=== PATIENT | male | born 1945 | race Caucasian/White ===

== ENCOUNTER → 2018-10-18 | Outpatient (CLI) | payer OTHER | LOC: BHFA 13:30 | PROVIDERS: ATTEND Internal Medicine Cardiovascular Disease | DX: R94.31 Abnormal electrocardiogram [ECG] [EKG] (principal); I48.91 Unspecified atrial fibrillation | CPT/HCPCS: 78452; 93017; A9500; J2785 ==

== ENCOUNTER → 2018-11-06 | Outpatient (CLI) | payer OTHER | LOC: BHFA 09:15 | PROVIDERS: ATTEND Internal Medicine Interventional Cardiology | DX: I48.91 Unspecified atrial fibrillation (principal) ==

== ENCOUNTER → 2018-11-16 | Outpatient (CLI) | payer OTHER | LOC: BHFA 09:00 | PROVIDERS: ATTEND Internal Medicine Interventional Cardiology | DX: I48.91 Unspecified atrial fibrillation (principal) ==

== ENCOUNTER 2018-12-07 06:44 | Day surgery (SDC) | payer OTHER ==
[2018-12-07] MEDS ORDERED: fentaNYL 100 MCG/2 ML INJ IVP ONE (06:47)
[2018-12-07] MEDS ORDERED: NS 500 ML IV ONE (06:47)
[2018-12-07] MEDS ORDERED: ATROPINE SULFATE 1 MG/10 ML SYR IVP ONE (06:47)
[2018-12-07] MEDS ORDERED: MIDAZOLAM 2 MG/2 ML VIAL IVP ONE (06:47)
[2018-12-07] MEDS ORDERED: BENZOCAINE UNIT DOSE SPRAY HURRICAINE MM ONE (06:47)
[2018-12-07 07:37] LABS: INR 1.25 (0.83-1.16); PROTIME(PATIENT) 15.9 SEC (12.0-15.0)
--- NOTE | 2018-12-07 08:37 | PDANEPAE ---
ANE Past Medical History - Cardiovascular History Hx Arrhythmias: Yes - Pulmonary History Hx COPD: No Hx Asthma/Reactive Airway Disease: No Hx Recent Upper Respiratory Infection: No Hx Oxygen in Use at Home: No Hx Sleep Apnea: No ANE Review of Systems Review of Systems: ANE Patient History - Allergies Allergies/Adverse Reactions: No Known Allergies Allergy (Unverified 01/22/11 15:14) - Home Medications Home Medications: Aspirin [Aspirin 81mg (OTC)] 81 mg PO DAILY 02/05/14 [Last Taken Unknown] Herbals/Supplements -Info Only 1 each PO AD 02/05/14 [Last Taken Unknown] Multivitamins [Tab-A-Zeynep] 1 each PO DAILY 02/05/14 [Last Taken Unknown] [place]-3 Fatty Acids/Fish Oil [Fish Oil 1,000 mg Capsule] 1 each PO DAILY [Last Taken Unknown] Zolpidem Tartrate 5 - 10 mg PO HS PRN 02/05/14 [Last Taken 12/06/18 23:30] Eliquis 5 mg BID 12/07/18 [Last Taken 12/07/18 07:21] Lisinopril 5 mg DAILY 12/07/18 [Last Taken 12/07/18 06:00] - Smoking Hx Smoking Status: Former smoker ANE Labs/Vital Signs - Labs Result Diagrams: 12/07/18 07:20 - Vital Signs Height: 172.72 cm Weight: 65.771 kg ANE Physical Exam - Airway Neck exam: FROM Mallampati Score: Class 2 Mouth exam: normal dental/mouth exam - Pulmonary Pulmonary: no respiratory distress - Cardiovascular Cardiovascular: irregularly irregular - ASA Status ASA Status: II ANE Anesthesia Plan Anesthesia Plan: GA with mask
[2018-12-07] MEDS ORDERED: LIDOCAINE 1% 5 ML SDV ONE (08:38)
[2018-12-07] MEDS ORDERED: PROPOFOL 200 MG/20 ML VIAL ONE ×2 (08:38→09:01)
--- NOTE | 2018-12-07 08:48 | PDHPUP ---
History & Physical Update H&P update statement: This history and physical update is based on an assessment of the patient which was completed after admission or registration (within 24 hours), but prior to the surgery/procedure. H&P update: H&P reviewed & patient examined, no change in patient's condition since H&P completed
--- NOTE | 2018-12-07 09:20 | POSTANESTH ---
Post Anesthetic Evaluation Cardiovascular Status: Normal, Stable Respiratory Status: Normal, Stable Level of Consciousness/Mental Status: Mildly Sleepy, Arousable Pain Control: Adequate, Prn Tx Ordered Nausea/Vomiting Control: Adequate, Prn Tx Ordered Complications Possibly Related to Anesthesia: None Noted
--- NOTE | 2018-12-07 09:25 | PDTEE1 ---
TIFFANIE Cardioversion Procedure Procedure: electrical cardioversion, transesophageal echo Indications: atrial fibrillation Consent: signed and in chart Anticoagulation: eliquis Procedural Details: Pads were placed in anterior-posterior position. TIFFANIE probe was advanced and standard images obtained. There is no evidence of left atrial or left atrial appendage thrombus. Synchronized cardioversion attempt #1: 200J Results: normal sinus rhythm Conclusions: successful TIFFANIE cardioversion
--- NOTE | 2018-12-07 10:00 | CPEKG ---
Test Reason : OPEN Blood Pressure : / mmHG Vent. Rate : 093 BPM Atrial Rate : 083 BPM P-R Int : 287 ms QRS Dur : 086 ms QT Int : 420 ms P-R-T Axes : 162 062 208 degrees QTc Int : 523 ms Atrial fibrillation Repol abnrm suggests ischemia, diffuse leads Prolonged QT interval Confirmed by Miguel Boston ([id number]) on 12/07/2018 9:59:32 AM Referred By: LION BERRIOS Confirmed By:Miguel Boston
--- NOTE | 2018-12-07 10:01 | CPEKG ---
Test Reason : OPEN Blood Pressure : / mmHG Vent. Rate : 054 BPM Atrial Rate : 108 BPM P-R Int : 147 ms QRS Dur : 082 ms QT Int : 437 ms P-R-T Axes : 074 045 116 degrees QTc Int : 415 ms Sinus rhythm Supraventricular bigeminy Repol abnrm suggests ischemia, anterolateral Confirmed by Miguel Boston ([id number]) on 12/07/2018 10:00:57 AM Referred By: LION BERRIOS Confirmed By:Miguel Boston
--- NOTE | 2018-12-13 10:00 | ECHO ---
[email or web address] [address] [address] Main: [phone] Fax: Transesophageal Echocardiography Name: GARCIA VERA MR#: [id number] Study Date: 12/07/2018 Study Time: 08:42 AM Date of : 1945 Age: 73 year(s) Height: ( ) Weight: ( ) BSA: Gender: Male Examination: TIFFANIE Indication: pre-cardioversion; MR Image Quality: Adequate Contrast: Requested by: James Booth Heart Rate: Rhythm: BP: / Procedure Staff Chief Of Hospital Medicine: Isabel Mei [facility] Reading Physician: James Booth MD Requesting Provider: TIFFANIE Exam Details Conclusions: no pericardial effusion. Left atrial enlargement. Moderate to severe mitral regurgitation No thrombus within left atrial appendage. No contraindications to cardioversion identified by this study. Measurements: Chambers Valvular Assessment AV/MV Valvular Assessment TV/PV Normal Normal Normal Name Value Range Name Value Range Name Value Range Additional Measurements: Findings: Left Ventricle: Normal size left ventricle. Normal global systolic LV function. Left Atrium: Left atrial enlargement. Left Atrial Appendage: No thrombus in left appendage. Right Atrium: Right atrial enlargement. Mitral Valve: There is mild thickening of the mitral valve leaflets. There is mild bileaflet mitral valve prolapse. Patient: GARCIA VERA Study Date: 12/07/2018 Page 1 of 2 08:42 AM Moderate to severe mitral regurgitation. Doming of the mitral valve leaflets consistent with moderate mitral valve stenosis. Aortic Valve: There is mild thickening of the aortic cusps. The aortic valve is tri-leaflet. Mild aortic valve regurgitation is present. Tricuspid Valve: The tricuspid valve appears normal. Moderate tricuspid regurgitation is present. Pulmonic Valve: The pulmonic valve is normal in appearance and function. l1n (No Signature Object) Patient: GARCIA VERA Study Date: 12/07/2018 Page 2 of 2 08:42 AM [id number]
== END 2018-12-07 10:30 | disposition home or self-care (01) ==
LOC: FCATH 06:44
PROVIDERS: ATTEND Internal Medicine Interventional Cardiology
DX: I48.91 Unspecified atrial fibrillation (principal); I34.0 Nonrheumatic mitral (valve) insufficiency; I51.7 Cardiomegaly; I36.1 Nonrheumatic tricuspid (valve) insufficiency; I10 Essential (primary) hypertension; Z79.01 Long term (current) use of anticoagulants; Z85.820 Personal history of malignant melanoma of skin; Z85.46 Personal history of malignant neoplasm of prostate; Z82.49 Family history of ischemic heart disease and other diseases of the circulatory system
CPT/HCPCS: J0461; J2704

== ENCOUNTER 2019-03-30 08:32 | Day surgery (SDC) | payer OTHER ==
[2019-03-30] MEDS ORDERED: FAMOTIDINE 20 MG TAB PO ONE (08:42)
[2019-03-30] MEDS ORDERED: DIAZEPAM 5 MG TAB PO ONE (08:42)
[2019-03-30] MEDS ORDERED: diphenhydrAMINE 25 MG CAP PO ONE (08:42)
[2019-03-30] MEDS ORDERED: ASPIRIN EC 325 MG TAB PO ONE (08:42)
[2019-03-30] MEDS ORDERED: NS 1,000 ML IV ONE (08:42)
[2019-03-30 09:35] LABS: PLATELET COUNT 213 10^3/uL (150-400)
[2019-03-30 09:45] LABS: INR 1.07 (0.83-1.16); PROTIME(PATIENT) 13.5 SEC (12.0-15.0)
--- NOTE | 2019-03-30 09:53 | PDPROPOC ---
Sedation Plan of Care Sedation Plan of Care: vital signs stable, mental status noted, patient educated of risks, benefits, alternatives, patient can tolerate sedation ASA Classification: ASA 1 Planned drugs: fentanyl, midazolam Mallampati Score: Class 1 Mallampati Reference Image: Patient passed 3-3-2 rule?: Yes
[2019-03-30] MEDS ORDERED: MIDAZOLAM 2 MG/2 ML VIAL ONE (10:03)
[2019-03-30] MEDS ORDERED: fentaNYL 100 MCG/2 ML INJ ONE (10:03)
[2019-03-30] MEDS ORDERED: VERAPAMIL 5 MG/2 ML VIAL ONE (10:04)
[2019-03-30] MEDS ORDERED: HEPARIN 10,000 UNIT/10 ML MDV (1,000 UNIT/ML) ONE (10:04)
[2019-03-30] MEDS ORDERED: IOPAMIDOL (ISOVUE 370) 100 ML BTL IV ONE (10:05)
[2019-03-30] MEDS ORDERED: LIDOCAINE 1% 5 ML SDV ONE (10:05)
--- NOTE | 2019-03-30 10:48 | PDGENHP ---
History & Physical Chief Complaint: Preop mitral valve History of Present Illness: 73-year-old male here for elective cardiac catheterization prior to mitral valve repair with Maze procedure Pertinent Past, Social, Family History: Please see attached H and P for complete social family and past medical history. Relevant Physical Exam: Heart rate 110. Blood pressure 130/70. Well-nourished well-developed male no distress. No JVP at 90 degrees. Chest is clear. Cardiac exam irregular irregular rhythm with 3/6 systolic murmur. Abdomen is soft. Femoral pulses are +2 and equal. Radial pulses +2 and equal. Alert and oriented x3. No facial asymmetry. Cardiorespiratory Assessment: Assessment: Preop mitral valve repair/Maze procedure. Cardiac catheterization today. Risks and benefits discussed will proceed.
--- NOTE | 2019-03-30 11:08 | PDDXCAT ---
Diagnostic Cath Note - . Date: 03/30/19 Service Operator: Leobardo Indication: other (Preop mitral valve surgery) - Procedure Access: right wrist Procedure: left heart catheterization, coronary angiography, left ventriculogram - Materials Left Heart Cath size: 5F Left Heart Cath materials: pigtail, other ([place] 4) - Findings-Left Heart Catheterization LM: Normal LAD: Normal LCX: Dominant: Normal RCA: Non dominant: Normal EDP: 12 mm of mercury LVEF: 60 Wall motion: Normal Complications: None Estimated blood loss: <50ml Closure method: TR Band Assessment: Angiographically normal coronary arteries. Normal LV systolic function
--- NOTE | 2019-04-06 10:45 | CPEKG ---
Test Reason : OPEN Blood Pressure : / mmHG Vent. Rate : 111 BPM Atrial Rate : 110 BPM P-R Int : 130 ms QRS Dur : 085 ms QT Int : 267 ms P-R-T Axes : -66 058 269 degrees QTc Int : 363 ms Atrial flutter Confirmed by Juan Miguel Herbert ([id number]) on 04/06/2019 10:44:50 AM Referred By: LION BERRIOS Confirmed By:Juan Miguel Herbert
== END 2019-03-30 14:00 | disposition home or self-care (01) ==
LOC: FCATH 08:32
PROVIDERS: ATTEND Internal Medicine Interventional Cardiology
DX: Z01.810 Encounter for preprocedural cardiovascular examination (principal); I34.0 Nonrheumatic mitral (valve) insufficiency; Z85.820 Personal history of malignant melanoma of skin
CPT/HCPCS: 71046; 93458; 93880; C1769; J1644; J2250; J3010; Q9967

== ENCOUNTER 2019-04-04 07:15 | Inpatient (IN) | payer OTHER ==
--- NOTE | 2019-04-04 07:12 | PDGENHP ---
History and Physical - Chief Complaint preop Maze, MVrpr, TVrpr - History of Present Illness 73 yo male with persistent AF assoc with moderate to severe MR, moderate TR, severe biatrial enlargement and class II-III functional symptoms admitted for elective Bedoya-Maze IV procedure with valvular repair/replacement. Preop imaging negative for LVSD or prohibitive neurologic risk. Cath interpreted by Dr Feng as showing possible high grade ostial RCA stenosis and to be reviewed in cath conference this am. AF diagnosed about 1 yr ago on annual physical and has been refractory to antiarrhythmic therapy as well as DC CVSN. Although he is unaware of his rhythm/ palpitations, he endorses a significant decline in his stamina over the past year, feeling winded with modest exertion and no longer able to snowboard, hike , or play basketball at his his usual pace. No wt gain, orthopnea, abd tenderness, leg edema or presyncope. Eliquis stopped 03/24. History Information - Allergies/Home Medication List Allergies/Adverse Reactions: No Known Allergies Allergy (Verified 04/04/19 07:45) Home Medications: Herbals/Supplements -Info Only 1 each PO AD 02/05/14 [Last Taken 1 Month Ago ~] Multivitamins [Tab-A-Zeynep] 1 each PO DAILY 02/05/14 [Last Taken 1 Month Ago ~] [place]-3 Fatty Acids/Fish Oil [Fish Oil 1,000 mg Capsule] 1 each PO DAILY [Last Taken 1 Month Ago ~03/05/19] Zolpidem Tartrate 5 - 10 mg PO HS PRN 02/05/14 [Last Taken 04/03/19 22:00] Apixaban [Eliquis] 5 mg PO BID 12/07/18 [Last Taken 03/25/19 07:00] Albuterol [Proventil Inhaler HFA (*)] 2 puffs IH DAILY PRN 03/26/19 [Last Taken 07/08/18] Ascorbic Acid [Vitamin C 250 mg (*)] 250 mg PO DAILY 03/26/19 [Last Taken 1 Month Ago ~03/05/19] Lisinopril [Zestril 10 mg (*)] 5 mg PO BID 03/26/19 [Last Taken 04/03/19 22:00] I have personally reviewed and updated: medical history, social history, surgical history - Past Medical History cancer (prostate), hypertension Additional medical history: Hepatitis C (contracted from [facility]DA in his youth) treated with Harvoni in 2018 and deemed "cured". insomnia. anxiety disorder. carotid atherosclerosis - Surgical History Reports: cholecystectomy Additional surgical history: prostatectomy - Social History Smoking Status: Former smoker Review of Systems Review of Systems: Constitutional: Reports: no symptoms EENMT: Reports: other (no gum/dental concerns) Gastrointestinal: Reports: other (no difficulty swallowing pills) Genitourinary: Reports: no symptoms Physical Exam Physical Exam: Constitutional: no apparent distress, appears nourished Eyes: anicteric sclera Ears, Nose, Mouth, Throat: moist mucous membranes, hearing normal, other (no visible dental disrepair) Cardiovascular: systolic murmur, irregularly irregular, pulses symmetric bilaterally, other (Excellent caliber GSV bilat ankles, no varicosities) Peripheral Pulses: 3+: dorsalis-pedis (R), dorsalis-pedis (L) Respiratory: no respiratory distress, clear to auscultation Gastrointestinal: normoactive bowel sounds, soft, non-tender abdomen Skin: warm, normal color, no rashes or abrasions Musculoskeletal: other (symmetric tone) Neurologic: AAOx3 Psychiatric: interacting appropriately, not anxious Lab Data & Imaging Review Patient ABO/Rh AB POSITIVE 03/30/19 09:00 Antibody Screen NEGATIVE 03/30/19 09:00 H/H 15.9/46.5, plt 213 Na 140, K 4.3, BUN 18, Cr 0.9, glc 92 HgbA1c 5.9% Imaging Review: CUS, TIFFANIE, LHC (reported by Dr Booth as angiographically nl coros, LVEDP 12, LVEF 60%) Visualized and Interpreted Chest x-ray results: Yes Chest X-Ray results: no infiltrate, other (borderline cardiomegaly) Assessment & Plan Assessment: Longstanding persistent atrial fibrillation Valvular cardiomyopathy with severe AGUSTINA Moderate to severe mitral regurgitation Moderate tricuspid regurgitation Possible high grade ostial RCA stenosis Plan: Bedoya-Maze 4, MVA/R, TVA, +/- CABG1 Consents per Dr Feng
[~2019-04-04 07:15] MED LIST: CARDIOPLEGIC SOLUTION 1,052.8 ML PF ONE; DOBUTamine/DEXTROSE 250 ML IV ONE; INSULIN REGULAR HUMAN 100 UNIT in NS 100 ML IV ONE; MANNITOL 25% 12.5 GM/50 ML VIAL IVP ONE; MILRINONE/DEXTROSE 100 ML IV ONE; NOREPINEPHRINE BITARTRATE 16 MG in NS 250 ML IV ONE; PHENYLEPHRINE HCL 50 MG in NS 250 ML IV ONE
[2019-04-04] MEDS ORDERED: AMINOCAPROIC ACID 5 GM/20 ML VIAL IV ONE (07:21)
[2019-04-04] MEDS ORDERED: CITRATE DEXTROSE SOLN 500 ML BAG MISC ONE (07:21)
[2019-04-04] MEDS ORDERED: ceFAZolin 2 GM/DEXTROSE 100 ML IV ONE (07:21)
[2019-04-04] MEDS ORDERED: niCARdipine/NACL 200 ML IV ONE (07:21)
[2019-04-04] MEDS ORDERED: LIDOCAINE 1% 2 ML INJ ID PRN (07:21)
[2019-04-04] MEDS ORDERED: LR 1,000 ML IV ONE (07:22)
[2019-04-04] MEDS ORDERED: PROTAMINE SULFATE 50 MG/5 ML VIAL IVP ONE (07:37)
[2019-04-04] MEDS ORDERED: ALBUMIN 5% 250 ML BOTTLE IV ONE ×2 (07:37→11:39)
[2019-04-04] MEDS ORDERED: MILRINONE/DEXTROSE/100 ML BAG IV ONE (07:37)
[2019-04-04] MEDS ORDERED: CALCIUM CHLORIDE 1 GM/10 ML INJ ONE (07:37)
[2019-04-04] MEDS ORDERED: NA BICARBONATE 50 MEQ/50 ML VIAL ONE (07:38)
[2019-04-04] MEDS ORDERED: AMINOCAPROIC ACID 5 GM/20 ML VIAL ONE (07:38)
[2019-04-04] MEDS ORDERED: LIDOCAINE 2% 100 MG/5 ML SYR ONE (07:38)
[2019-04-04] MEDS ORDERED: HEPARIN 10,000 UNIT/10 ML MDV (1,000 UNIT/ML) ONE (07:39)
[2019-04-04] MEDS ORDERED: MAGNESIUM SULFATE 1 GM/2 ML VIAL ONE (07:40)
[2019-04-04] MEDS ORDERED: methylPREDNISolone SOD SUCC 1 GM/8 ML VIAL ONE (07:40)
[2019-04-04] MEDS ORDERED: DOPamine/DEXTROSE 400 MG/250 ML BAG IV ONE (07:40)
[2019-04-04] MEDS ORDERED: ADENOSINE 6 MG/2 ML VIAL ONE (07:40)
[2019-04-04] MEDS ORDERED: CITRATE DEXTROSE SOLN 500 ML BAG ONE (07:40)
[2019-04-04] MEDS ORDERED: niCARdipine/NACL/200 ML BAG IV ONE (07:40)
[2019-04-04] MEDS ORDERED: AMIODARONE HCL 150 MG/3 ML VIAL ONE (07:40)
[2019-04-04] MEDS ORDERED: NITROGLYCERIN/D5W 50 MG/250 ML BOTTLE IV ONE (07:41)
[2019-04-04] MEDS ORDERED: PAPAVERINE HCL 60 MG/2 ML SDV ONE (07:41)
[2019-04-04] MEDS ORDERED: VERAPAMIL 5 MG/2 ML VIAL ONE (07:41)
[2019-04-04] MEDS: MUPIROCIN 2% 22 GM OINT NS SCH ×3 (08:10→22:22)
[2019-04-04] MEDS ORDERED: MIDAZOLAM 2 MG/2 ML VIAL IVP ONE (08:15)
--- NOTE | 2019-04-04 08:15 | PDANEPAE ---
ANE History of Present Illness 73 yo for mvr/tvr ANE Past Medical History - Cardiovascular History Hx Hypertension: Yes Hx Arrhythmias: Yes Hx Chest Pain: No Hx Coronary Artery / Peripheral Vascular Disease: No Hx CHF / Valvular Disease: No Hx Palpitations: No Cardiovascular History Comment: A-FIB - Pulmonary History Hx COPD: No Hx Asthma/Reactive Airway Disease: No Hx Recent Upper Respiratory Infection: No Hx Oxygen in Use at Home: No Hx Sleep Apnea: No Sleep Apnea Screening Result - Last Documented: Positive - Neurologic History Hx Cerebrovascular Accident: No Hx Seizures: No Hx Dementia: No - Endocrine History Hx Diabetes: No - Renal History Hx Renal Disorders: No - Liver History Hx Hepatic Disorders: Yes Hepatic History Comment: HEP C 1985 TREATED 04/2015 - Neurological & Psychiatric Hx Hx Neurological and Psychiatric Disorders: Yes Neurological / Psychiatric History Comment: INSOMNIA. ANXIETY. MORE RECENTLY IRRITABLE - Cancer History Hx Cancer: Yes Cancer History Comment: MELANOMA. PROSTATE - Congenital Disorder History Hx Congenital Disorders: No - GI History Hx Gastrointestinal Disorders: No - Other Health History Other Health History: UPPER PARTIAL - Chronic Pain History Chronic Pain: No - Surgical History Prior Surgeries: TIFFANIE 11/2018. AVELINA 2014. PROSTATECTOMY. REMVL MELANOMA ANE Review of Systems Review of Systems: - Exercise capacity METS (RN): 6 METS ANE Patient History - Allergies Allergies/Adverse Reactions: No Known Allergies Allergy (Verified 04/04/19 07:45) - Home Medications Home Medications: Herbals/Supplements -Info Only 1 each PO AD 02/05/14 [Last Taken 1 Month Ago ~] Multivitamins [Tab-A-Zeynep] 1 each PO DAILY 02/05/14 [Last Taken 1 Month Ago ~] [place]-3 Fatty Acids/Fish Oil [Fish Oil 1,000 mg Capsule] 1 each PO DAILY [Last Taken 1 Month Ago ~03/05/19] Zolpidem Tartrate 5 - 10 mg PO HS PRN 02/05/14 [Last Taken 04/03/19 22:00] Apixaban [Eliquis] 5 mg PO BID 12/07/18 [Last Taken 03/25/19 07:00] Albuterol [Proventil Inhaler HFA (*)] 2 puffs IH DAILY PRN 03/26/19 [Last Taken 07/08/18] Ascorbic Acid [Vitamin C 250 mg (*)] 250 mg PO DAILY 03/26/19 [Last Taken 1 Month Ago ~03/05/19] Lisinopril [Zestril 10 mg (*)] 5 mg PO BID 03/26/19 [Last Taken 04/03/19 22:00] - NPO status NPO Since - Liquids (Date): 04/03/19 NPO Since - Liquids (Time): 22:00 NPO Since - Solids (Date): 04/03/19 NPO Since - Solids (Time): 18:00 - Smoking Hx Smoking Status: Former smoker ANE Labs/Vital Signs - Vital Signs Blood Pressure: 152/115 Heart Rate: 115 Respiratory Rate: 16 O2 Sat (%): 97 Height: 5 ft 8 in Weight: 64.41 kg ANE Physical Exam - Airway Neck exam: FROM Mallampati Score: Class 2 Mouth exam: normal dental/mouth exam - Pulmonary Pulmonary: no respiratory distress - Cardiovascular Cardiovascular: regular rate and rhythym - ASA Status ASA Status: III ANE Anesthesia Plan Anesthesia Plan: general endotracheal anesthesia Lines/Monitors: arterial line, central line
[2019-04-04] MEDS ORDERED: DEXAMETHASONE 4 MG/ML VIAL ONE (08:27)
[2019-04-04] MEDS ORDERED: REMIFENTANIL HCL 1 MG VIAL ONE (08:27)
[2019-04-04] MEDS ORDERED: fentaNYL 100 MCG/2 ML INJ ONE (08:27)
[2019-04-04] MEDS ORDERED: ROCURONIUM 100 MG/10 ML VIAL ONE (08:27)
[2019-04-04] MEDS ORDERED: PROPOFOL/EMULSION 500 MG/50 ML BOTTLE IV ONE (08:27)
[2019-04-04] MEDS ORDERED: DEXMEDETOMIDINE HCL 400 MCG in NS 100 ML IV SCH (08:30)
[2019-04-04] MEDS: ceFAZolin 1 GM VIAL ONE ×2 (12:30→12:52)
[2019-04-04] MEDS ORDERED: SUGAMMADEX SODIUM 200 MG/2 ML VIAL IVP ONE (13:05)
[2019-04-04] MEDS ORDERED: POTASSIUM Cl (KCl) 50 ML IV PRN (13:24)
[2019-04-04] MEDS ORDERED: POLYETHYLENE GLYCOL 3350 17 GM PKT PO PRN (13:24)
[2019-04-04] MEDS ORDERED: BISACODYL 10 MG SUPP PR PRN (13:24)
[2019-04-04] MEDS ORDERED: SODIUM CL NASAL 45 ML BTL EACHNARE PRN (13:24)
[2019-04-04] MEDS ORDERED: LACTULOSE 20 GM/30 ML UDCUP PO PRN (13:24)
[2019-04-04] MEDS ORDERED: MEPERIDINE 25 MG/0.5 ML AMP IVP PRN (13:24)
[2019-04-04] MEDS ORDERED: ONDANSETRON DISINTEGRATING 4 MG TAB PO PRN (13:24)
[2019-04-04] MEDS ORDERED: ONDANSETRON 4 MG/2 ML VIAL IVP PRN (13:24)
[2019-04-04] MEDS ORDERED: niCARdipine/NACL 200 ML IV PRN (13:24)
[2019-04-04] MEDS ORDERED: fentaNYL 100 MCG/2 ML INJ IVP PRN (13:24)
[2019-04-04] MEDS ORDERED: PANTOPRAZOLE SODIUM 40 MG VIAL IVP ONE (13:24)
[2019-04-04] MEDS ORDERED: ACETAMINOPHEN 650 MG SUPP PR PRN (13:24)
[2019-04-04] MEDS ORDERED: CEPACOL LOZENGE PO PRN (13:24)
[2019-04-04] MEDS ORDERED: D50W 25 GM/50 ML SYR IVP PRN (13:24)
[2019-04-04] MEDS ORDERED: MAGNESIUM HYDROXIDE 30 ML UDCUP PO PRN (13:24)
[2019-04-04] MEDS ORDERED: ACETAMINOPHEN 325 MG TAB PO PRN (13:24)
[2019-04-04] MEDS ORDERED: METOCLOPRAMIDE 10 MG/2 ML VIAL IVP PRN (13:24)
[2019-04-04] MEDS ORDERED: NS 1,000 ML IV SCH (13:30)
[2019-04-04] MEDS ORDERED: INSULIN REGULAR HUMAN 100 UNIT in NS 100 ML IV SCH (13:30)
[2019-04-04] MEDS ORDERED: IPRATROPIUM/ALBUTEROL 3 ML DEYVIAL IH PRN (13:35)
--- NOTE | 2019-04-04 14:24 | GOP ---
[f rep st] OPERATIVE REPORT DATE OF OPERATION: SURGEON: Andre Feng DO DUST MOP MAKER: Cailin. ANESTHESIA: [facility]. PREOPERATIVE DIAGNOSIS: 1. Severe mitral insufficiency with fibroelastic deficiency of the mitral valve. 2. Severe tricuspid insufficiency. 3. Paroxysmal atrial fibrillation. POSTOPERATIVE DIAGNOSIS: 1. Severe mitral insufficiency with fibroelastic deficiency of the mitral valve. 2. Severe tricuspid insufficiency. 3. Paroxysmal atrial fibrillation. PROCEDURE PERFORMED: FINDINGS: Patient had longstanding, persistent atrial fibrillation with markedly dilated atrial zenaida bers. He had tricuspid and mitral insufficiency. The ventricular function was approximately 60% pre op. DESCRIPTION OF PROCEDURE: He was consented for surgery, brought to the operating room, intubated. M onitoring lines were placed. He was prepped and draped in sterile classical manner. Sternotomy was performed. He was heparinized and cannulated with bicaval cannulas with tapes, initially sensing and on both pulmonary veins while he was in atrial fibrillation. It revealed no evidence of entrance bl ock. We were unable to cardiovert him to sinus. Left atrial appendage was without thrombus. We the n encircled the right pulmonary vein. Did multiple ablation lines with 3 overlapping lines with the last of each ablation per line less than 5 seconds. We then went on bypass and did the same on the l eft pulmonary vein antrum with 3 overlapping lines. We then arrested the heart with [place] protoco l, re-infusing every 45 minutes antegrade. He had trace aortic insufficiency and had adequate cardio plegic arrest. We then excised the tip of the left atrial appendage, placed a radiofrequency clamp a cross the right superior pulmonary vein and ablated it multiple times. We then placed a 40 mm atrial clip on the base of the appendage. We then marked the terminus of the left and right coronary syste ms on the coronary sinus. We then retracted the heart and opened the left atrium to the right superi or pulmonary vein, extending the incision almost all the way on the roof and floor lesion to the left pulmonary veins almost completely detaching the left atrium from the heart and completed the lines w ith radiofrequency on the roof and floor. We then did a cryoablation overlapping the coronary sinus in the mitral isthmus lesions for 3 minutes each. We then interrogated the mitral valve. It was a v carisa small, thin-walled, nonredundant mitral valve consistent with fibroelastic deficiency with mostly annular dilatation and elongation of both anterior and posterior leaflets. Next, a 28 mm ring was p laced. However, I was dissatisfied with the amount of leakage with distention. It appeared to come mostly from the clefts between P1, P2, and P2 and P3, although there were some at each commissure. I then placed a 30 mm ring and then subsequently replaced it with a 28 with no improvement. I closed the clefts and did a partial advancement of the lateral commissure. However, I felt that I was not s atisfied that the overlapping leaflet tissue was less than half a cm and would not be a good long-ter m device and besides that, the chordae were extremely friable and thin walled. For that reason, I di d anterior leaflet detachment, reimplanted laterally with a 27 mm Magna bioprosthesis sutured in a villareal pra-annular position with core knots. The left atrium was closed. We then secured the caval tapes, opened the right atrium, placed sutures around the anulus, which was markedly enlarged at least 40 mm in AP diameter. After placing the sutures, I placed them through a ring, but did not secure it. We removed the cross-clamp with suction on the ascending aortic vent in Trendelenburg with intermittent ventilation to de-air the patient in Trendelenburg. We then did the isthmus lesion with cryo for 3 minutes. We then performed a free wall superior and inferior vena caval lines with radiofrequency. A 34 ring was secured in place with Cor-Knots. Distention of the ventricle revealed no regurgitation . The right atrium was closed in a 2-layer fashion. The patient was then weaned from bypass. Hepar in was reversed with protamine. The cannula was removed and oversewn. Two atrial and 2 ventricular pacing wires were placed, 2 pleural and 1 mediastinal drain were placed. The thymic fat and pericard ium were closed. The sternum was closed in a standard fashion. Patient was returned to ICU in stabl e condition. OPERATION PERFORMED: 1. Attempted mitral valve repair with subsequent mitral valve replacement with a #27 Magna bioprosth esis. 2. Tricuspid valve annuloplasty with a #34 Lee annuloplasty ring. 3. Left and right-sided Bedoya-Maze IV with sensing and testing with radiofrequency ablation and cryoab lation. SURGEON: Andre Feng D.O. /[id number]/MODL
[2019-04-04] MEDS: ALBUMIN 5% 250 ML IV PRN ×2 (14:31→17:04)
[2019-04-04] MEDS: KETOROLAC 15 MG/1 ML SDV IVP SCH ×2 (14:41→17:46)
--- NOTE | 2019-04-04 15:57 | PDCONSULT ---
Medical Aides Teacher Note: ASSESSMENT 73-year-old male with history of hypertension and symptomatic atrial fibrillation, MR and TR status post tricuspid valve angioplasty and mitral valve repair annuloplasty as well as Bedoya Maze procedure 04/04/2019 # symptomatic mitral and tricuspid regurgitation. Status post tricuspid valve angioplasty mitral valve repair. # symptomatic atrial fibrillation. Status post Bedoya Maze procedure # postop respiratory failure # hypertension # encephalopathy. Metabolic from surgery. Should improve quickly PLAN # placed on pressure support, wean to extubate # maintain euvolemia # start aspirin when taking p.o. # holding outpatient and hypertensive # chest tubes to suction # pacing as needed # Feeding - NPO # Analgesia APAP, fentanyl, Oxy # Sedation none # Thromboprophylaxis - SCDs # Head of bed elevated # Ulcer prophylaxis - ppi # Glucose SSI # Skin no skin breakdown # Delirium - delirium precautions I was asked for Dr. Feng of cardiothoracic surgery to evaluate this patient for ICU care in the setting of postoperative CT surgery and respiratory failure. CC shortness of breath YURI Erlin is a very pleasant 73-year-old male the diagnosis of atrial fibrillation, moderate MR and TR. He complained of mild dyspnea exertion while snowboarding. He underwent successful TIFFANIE cardioversion but subsequently relapsed. He had been on amiodarone but did not tolerate due to side effects. He was on Eliquis now on Pradaxa. He has remote smoking history. Based on symptomatic atrial fibrillation, mitral regurgitation tricuspid regurgitation and failed cardioversion as well as medical therapy he underwent mitral and tricuspid valve angioplasty as well as Bedoya Maze procedure. His postoperative respiratory failure is unable to provide meaningful history Allergies No known drug allergies Past medical history Atrial fibrillation on Pradaxa, hypertension, HSV, HCV s/p treatment, a operator s/p resection FAM HX CAD SOC HX prior tobacco, lives in [facility], drinks caffeine daily ROS Unable to be obtained secondary to mental status Exam Afebrile, 78, 99/62, respiratory rate 19 96% on 50% FiO2 CPAP GEN: Lying in bed, sedated intubated NEURO: Sedated, somnolent response to moderate tactile stimulation, no focal deficit HEENT: ET tube in place, OP otherwise clear, mild upper lip swelling NECK: Right IJ in place no swelling CHEST sternotomy clean dry and intact CVS: rrr no m/r/g, no JVD appreciated PULM: CTAB, no wheezes/rales/rhonchi ABD: soft, NT, ND, NABS EXT: no swelling, no cyanosis, full ROM SKIN: warm, dry, intact, no rash PSYCH intubated, sedated Labs Reviewed Imaging I personally reviewed interpreted radiographic images well as formal radiology reads 04/04/2019 CXR ET tube in place, right IJ in place, mediastinal drain and pleural drain in place. Tricuspid mitral valve rings in place, sternotomy wires in place, no pneumothorax. Linear opacity in right lower lobe. Cardio pays for leads in place.
--- NOTE | 2019-04-04 16:17 | PDMN ---
Medical Necessity Medical necessity: [facility] IP only surgery; cpt 95383 MVR, [id number] Bedoya-Maze, 16250 TVA
[2019-04-04] MEDS: ceFAZolin 2 GM/DEXTROSE 100 ML IV SCH (16:30)
[2019-04-04] MEDS: HYDROCODONE/APAP 5/325 TAB PO PRN (22:23)
[2019-04-05] MEDS: ceFAZolin 2 GM/DEXTROSE 100 ML IV SCH ×3 (00:11→16:24)
[2019-04-05] MEDS: KETOROLAC 15 MG/1 ML SDV IVP SCH ×4 (00:12→18:25)
[2019-04-05 04:31] LABS: PLATELET COUNT 85 10^3/uL (150-400)
[2019-04-05 04:53] LABS: INR 1.47 (0.83-1.16); PROTIME(PATIENT) 17.2 SEC (12.0-15.0)
[2019-04-05] MEDS ORDERED: HEPARIN 5,000 UNIT/0.5 ML INJ SC SCH (06:00)
--- NOTE | 2019-04-05 07:00 | SOAPPROG ---
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 EP to get involved next 1-2 days if intrinsic recovery delayed. Anticoagulation to be switched to Coumadin as per MVR protocol , once coagulopathy fully resolved. Severe MR - Unsatisfactory valvular competence with repair attempts and bioprosthesis implanted. Antithrombotic prophylaxis with Coumadin x 2 mo, target INR 2-3. Moderate TR - Amenable to ring annuloplasty. Antithrombotic prophylaxis as per MVR. Valvular cardiomyopathy w preserved LV systolic fx - Extubated without incident. No pressor support. No sig volume overload. Adequate autodiuresis overnoc with stable renal fx. Follow. Acute expected blood loss anemia with thrombocytopenia - Stable. No transfusions required. No evidence active bleeding. Mildly autoanticoagulated and VTE prophylaxis adjusted. Plan: Routine POD#1 orders re lines, drains, orals and mobility. Cont AAI pacing @ 78. Keep in ICU while pacer dependent. 04/05/19 06:57 Subjective: Feels better than expected. Satisfactory analgesia. Hungry. Only dizzy when pacer "played with." Objective: Vital Signs Temp Pulse Resp BP Pulse Ox 37.3 C 81 17 108/56 L 98 04/05/19 04:00 04/05/19 06:00 04/05/19 06:00 04/05/19 06:00 04/05/19 06:00 Laboratory Results 04/05/19 04:20 04/05/19 04:20 04/04/19 04/05/19 04/06/19 05:59 05:59 05:59 Intake Total 1445 Output Total 1625 Balance -180 PT 17.2 SEC (12.0-15.0) H 04/05/19 04:20 INR 1.47 (0.83-1.16) H 04/05/19 04:20 Extubated yest afternoon. No gtts overnoc. Remains AAI paced. Underlying sinus arrest w slow escape. Adequate fluid balance. Dissipating CTOP. CXR-> no PTX, no pulm vasc congestion, no undrained effusions Labs as expected. INR remains sl elev. Physical Exam - Physical Exam General Appearance: alert, no apparent distress Respiratory: lungs clear (grossly), other (CTs x 3 y-d to pleurovac, thin serosang drainage, no air leak) Cardiac/Chest: regular rate, rhythm (paced), other (Sternotomy CDI, ecchymotic) Abdomen: non-tender, soft Skin: warm/dry Extremities: swelling (trace, UEs > LEs) ICD10 Worksheet Patient Problems: Problems Problem Status Onset S/P Maze operation for atrial fibrillation Acute ~04/04/19 S/P mitral valve replacement with bioprosthetic valve Acute ~04/04/19 S/P tricuspid valve repair Acute ~04/04/19 HTN (hypertension) Chronic Valvular cardiomyopathy Chronic Chronic anticoagulation Chronic Longstanding persistent atrial fibrillation Chronic Mitral regurgitation Chronic Tricuspid regurgitation Chronic
--- NOTE | 2019-04-05 07:28 | POSTANESTH ---
Post Anesthetic Evaluation Cardiovascular Status: Normal, Stable Respiratory Status: Tx Decrease in SpO2 Level of Consciousness/Mental Status: Can Participate in Eval Pain Control: Adequate, Prn Tx Ordered Nausea/Vomiting Control: Adequate, Prn Tx Ordered Complications Possibly Related to Anesthesia: None Noted
[2019-04-05] MEDS ORDERED: traMADol 50 MG TAB PO PRN (07:45)
[2019-04-05] MEDS: PANTOPRAZOLE SODIUM 40 MG TAB PO SCH (08:37)
[2019-04-05] MEDS: ASPIRIN 81 MG CHEWABLE TAB PO SCH (08:38)
[2019-04-05] MEDS: MUPIROCIN 2% 22 GM OINT NS SCH ×2 (08:43→23:33)
[2019-04-05] MEDS ORDERED: ASPIRIN 81 MG CHEWABLE TAB TUBE PRN (09:00)
[2019-04-05] MEDS ORDERED: FUROSEMIDE 20 MG/2 ML VIAL ONE (16:20)
[2019-04-05] MEDS ORDERED: FUROSEMIDE 20 MG/2 ML VIAL IVP ONE (16:30)
--- NOTE | 2019-04-05 16:52 | ASMTCASEMG ---
Living Arrangements What is your living Answers: With Spouse arrangement? Who do you live with? Type Of Residence What kind of residence do Answers: House you live in? Discharge Plan Comments Coordination Status Comments Notes: Patient is a 73 yo male with longstanding persistant AFIB, mitral regurgitation, tricuspid regurgitation, and valvular cardiomyopathy who comes to [facility] for a Bedoya-Maze 4,MVA/R, TVA and CABG1. OT/PT/cardiac rehab evals are ordered for the patient. D/C plan TBD. CM will follow. Date Signed: 04/05/2019 04:51 PM Electronically Signed By:Jesica Trevizo LCSW
[2019-04-05] MEDS: HYDROCODONE/APAP 5/325 TAB PO PRN (19:32)
[2019-04-06] MEDS: ceFAZolin 2 GM/DEXTROSE 100 ML IV SCH (00:42)
[2019-04-06 04:59] LABS: INR 1.24 (0.83-1.16); PROTIME(PATIENT) 15.1 SEC (12.0-15.0)
[2019-04-06 05:10] LABS: PLATELET COUNT 94 10^3/uL (150-400)
--- NOTE | 2019-04-06 06:46 | SOAPPROG ---
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 Junctional escape by yest afternoon. EP consult deferred for now. Cont avoidance of antinodals. Anticoagulation switched to Coumadin as per MVR protocol. Severe MR - Unsatisfactory valvular competence with repair attempts and bioprosthesis implanted. Antithrombotic prophylaxis with Coumadin x 2 mo, target INR 2-3. Moderate TR - Amenable to ring annuloplasty. Antithrombotic prophylaxis as per MVR. Valvular cardiomyopathy w preserved LV systolic fx - Extubated without incident. No pressor support. Adequate diuresis of modest volume overload. Acute expected blood loss anemia with thrombocytopenia - Stable. No transfusions required. Plt rebound evident. Likely can resume VTE prophylaxis w SQ hep tomorrow. Plan: Ant mediastinal drain removed. Consider post mediastinal drain removal later today. Decr VVI pacing to 60. Start coumadin. 2.5 mg today. Ok to tx to PCU. 04/06/19 06:45 Subjective: Feels well. Improving appetite and mobility. Adequate analgesia. Objective: Vital Signs Temp Pulse Resp BP Pulse Ox 37.1 C 78 14 107/67 98 04/06/19 00:00 04/06/19 04:00 04/06/19 04:00 04/06/19 04:00 04/06/19 04:00 Laboratory Results 04/06/19 04:30 04/06/19 04:30 04/05/19 04/06/19 04/07/19 05:59 05:59 05:59 Intake Total 1445 1770 Output Total 1625 1625 Balance -180 145 PT 15.1 SEC (12.0-15.0) H 04/06/19 04:30 INR 1.24 (0.83-1.16) H 04/06/19 04:30 Consistent JR 40s overnoc. Inconsistent Awire capture and switched to VVI 78. MAPs > 65 with adequate UOP and stable renal fx. CTOP approaching removal criteria. CXR: small rt pleural effusion w basilar atelectasis, tube in good position. INR correcting, Plt count rising. Physical Exam - Physical Exam General Appearance: alert, no apparent distress Respiratory: crackles (basilar, R>L), other (Blakes x 3 to bulb suction, thin serosang drainage. Ant med drain removed without incident. Rt pleural tube stripped.) Cardiac/Chest: regular rate, rhythm (paced), other (Sternotomy CDI) Abdomen: non-tender, soft Skin: warm/dry Extremities: other (no visible edema) ICD10 Worksheet Patient Problems: Problems Problem Status Onset S/P Maze operation for atrial fibrillation Acute ~04/04/19 S/P mitral valve replacement with bioprosthetic valve Acute ~04/04/19 S/P tricuspid valve repair Acute ~04/04/19 HTN (hypertension) Chronic Valvular cardiomyopathy Chronic Chronic anticoagulation Chronic Longstanding persistent atrial fibrillation Chronic Mitral regurgitation Chronic Tricuspid regurgitation Chronic
[2019-04-06] MEDS: SENNOSIDES/DOCUSATE SODIUM TAB PO SCH ×2 (07:38→20:46)
[2019-04-06] MEDS: HYDROCODONE/APAP 5/325 TAB PO PRN ×2 (07:39→15:47)
[2019-04-06] MEDS: ASPIRIN 81 MG CHEWABLE TAB PO SCH (07:40)
[2019-04-06] MEDS: MUPIROCIN 2% 22 GM OINT NS SCH (07:40)
[2019-04-06] MEDS: PANTOPRAZOLE SODIUM 40 MG TAB PO SCH (07:40)
[2019-04-06] MEDS ORDERED: WARFARIN SODIUM 2.5 MG TAB PO ONE (16:00)
[2019-04-07 05:16] LABS: INR 1.35 (0.83-1.16); PROTIME(PATIENT) 16.1 SEC (12.0-15.0)
[2019-04-07] MEDS: HYDROCODONE/APAP 5/325 TAB PO PRN ×2 (05:42→15:22)
--- NOTE | 2019-04-07 07:13 | SOAPPROG ---
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 EP consult placed and d/w Dr. Moran. Cont avoidance of antinodals. Anticoagulation switched to Coumadin as per MVR protocol. Severe MR - Unsatisfactory valvular competence with repair attempts and bioprosthesis implanted. Antithrombotic prophylaxis with Coumadin x 2 mo, target INR 2-3. Moderate TR - Amenable to ring annuloplasty. Antithrombotic prophylaxis as per MVR. Valvular cardiomyopathy w preserved LV systolic fx - Extubated without incident. No pressor support. Adequate diuresis of modest volume overload. Acute expected blood loss anemia with thrombocytopenia - Stable. No transfusions required. VTE prophylaxis - SCDs, heparin initially held d/t low plt. Continue to hold in anticipation of PPM. Plan: Anticipate CT removal tomorrow TCPW cut after PPM EP consult w Dr. Moran Routine post-op TTE today Coumadin 2.5, INR tomorrow Dispo - Home with outpatient rehab pending PPM placement Subjective: Improving Objective: Vital Signs Temp Pulse Resp BP Pulse Ox 36.8 C 58 L 12 103/49 L 93 04/07/19 07:01 04/07/19 07:01 04/07/19 07:01 04/07/19 07:01 04/07/19 07:01 Laboratory Results 04/06/19 04:30 04/06/19 04:30 04/06/19 04/07/19 04/08/19 05:59 05:59 05:59 Intake Total 1770 1650 Output Total 1625 1285 190 Balance 145 365 -190 PT 16.1 SEC (12.0-15.0) H 04/07/19 04:45 INR 1.35 (0.83-1.16) H 04/07/19 04:45 - Physical Exam General Appearance: alert, no apparent distress Respiratory: crackles (basilar, R>L), other (Blakes x 2 to bulb suction, thin serosang drainage.) Cardiac/Chest: regular rate, rhythm (paced), other (Sternotomy CDI), underlying into 30's Abdomen: non-tender, soft Skin: warm/dry Extremities: other (no visible edema) ICD10 Worksheet Patient Problems: Problems Problem Status Onset S/P Maze operation for atrial fibrillation Acute ~04/04/19 S/P mitral valve replacement with bioprosthetic valve Acute ~04/04/19 S/P tricuspid valve repair Acute ~04/04/19 HTN (hypertension) Chronic Valvular cardiomyopathy Chronic Chronic anticoagulation Chronic Longstanding persistent atrial fibrillation Chronic Mitral regurgitation Chronic Tricuspid regurgitation Chronic
[2019-04-07] MEDS: SENNOSIDES/DOCUSATE SODIUM TAB PO SCH ×2 (08:11→20:31)
[2019-04-07] MEDS: PANTOPRAZOLE SODIUM 40 MG TAB PO SCH (08:11)
[2019-04-07] MEDS: ASPIRIN 81 MG CHEWABLE TAB PO SCH (08:11)
--- NOTE | 2019-04-07 10:42 | PDCARCONS ---
Cardiology Consult Reason for Consult: electrophysiology consult requested by Dr Feng for postoperative sinus arrest Chief Complaint: "I'm feeling fine" History of Present Illness: Mr Muniz is a very pleasant 73yo M who is POD3 status post open heart surgery with mitral valve replacement with bioprosthesis, tricuspid valve repair with ring, CM4 ablation for atrial fibrillation with biatrial dilation, ROCHELLE clip. Postoperatively, he's been paced via epicardial wires due to sinus arrest, but his atrial wire is now compromised. He's been ventricular paced without any issues, and earlier today was still pacing dependent at set rate of 30bpm. I am thus asked to evaluate him for pacing candidacy. At the time of my exam, he was finishing up a lap with physical therapy, and was in narrow-complex rhythm in the low 50s. At rest, with his pacing rate turned down to 40bpm, he was in a consistent narrow-complex rhythm at ~49-51bpm. With dual-chamber sensing enabled , intermittent atrial sensing is noted; tele also shows intermittent, but not entirely consistent, P waves. Thus I suspect we're seeing a junctional escape rhythm, but cannot rule out atrial (possibly sinus) rhythm intermittently returning. Mr Muniz has no specific complaints for me at this time. He states that he's willing to undergo PPM implant if necessary, but would obviously prefer not to need it in the first place. History Information - Allergies/Home Medication List Allergies/Adverse Reactions: No Known Allergies Allergy (Verified 04/04/19 07:45) Home Medications: Herbals/Supplements -Info Only 1 each PO AD 02/05/14 [Last Taken 1 Month Ago ~] Multivitamins [Tab-A-Zeynep] 1 each PO DAILY 02/05/14 [Last Taken 1 Month Ago ~] Aurora-3 Fatty Acids/Fish Oil [Fish Oil 1,000 mg Capsule] 1 each PO DAILY [Last Taken 1 Month Ago ~03/05/19] Zolpidem Tartrate 5 - 10 mg PO HS PRN 02/05/14 [Last Taken 04/03/19 22:00] Apixaban [Eliquis] 5 mg PO BID 12/07/18 [Last Taken 03/25/19 07:00] Albuterol [Proventil Inhaler HFA (*)] 2 puffs IH DAILY PRN 03/26/19 [Last Taken 07/08/18] Ascorbic Acid [Vitamin C 250 mg (*)] 250 mg PO DAILY 03/26/19 [Last Taken 1 Month Ago ~03/05/19] Lisinopril [Zestril 10 mg (*)] 5 mg PO BID 03/26/19 [Last Taken 04/03/19 22:00] Past Medical History: - Past Medical History atrial fibrillation ([id number]=4), hypertension - Family History Additional family history: no SCA - Social History Smoking Status: Former smoker Drug Use: Other (former IVDU) Physical Exam Physical Exam: Temp Pulse Resp BP Pulse Ox 36.8 C 58 L 12 103/49 L 93 04/07/19 07:01 04/07/19 07:01 04/07/19 07:01 04/07/19 07:01 04/07/19 07:01 O2 (L/minute) 2 FIO2 (%) 40 Constitutional: no apparent distress, appears nourished, not in pain Eyes: PERRL Ears, Nose, Mouth, Throat: moist mucous membranes Cardiovascular: regular rate and rhythym, no murmur, rub, or gallop Peripheral Pulses: 2+: carotid (R), carotid (L), dorsalis-pedis (R), dorsalis- pedis (L) Respiratory: no respiratory distress Gastrointestinal: normoactive bowel sounds Skin: warm, no rashes or abrasions Musculoskeletal: full muscle strength Neurologic: AAOx3, CN II-XII Intact Psychiatric: interacting appropriately, not anxious, not encephalopathic Lab and Imaging 04/07/19 09:00 04/06/19 04:30 WBC 13.98 10^3/uL (3.80-9.50) H 04/07/19 09:00 RBC 3.31 10^6/uL (4.40-6.38) L 04/07/19 09:00 Hgb 10.6 g/dL (13.7-17.5) L 04/07/19 09:00 POC Hgb 10.9 gm/dL (13.7-17.5) L 04/04/19 23:52 Hct 31.2 % (40.0-51.0) L 04/07/19 09:00 POC Hct 32 % (40-51) L 04/04/19 23:52 MCV 94.3 fL (81.5-99.8) 04/07/19 09:00 MCH 32.0 pg (27.9-34.1) 04/07/19 09:00 MCHC 34.0 g/dL (32.4-36.7) 04/07/19 09:00 RDW 14.6 % (11.5-15.2) 04/07/19 09:00 Plt Count 82 10^3/uL (150-400) L 04/07/19 09:00 MPV 10.5 fL (8.7-11.7) 04/06/19 04:30 Neut % (Auto) 78.2 % (39.3-74.2) H 04/06/19 04:30 Lymph % (Auto) 8.6 % (15.0-45.0) L 04/06/19 04:30 [place] % (Auto) 12.4 % (4.5-13.0) 04/06/19 04:30 Eos % (Auto) 0.3 % (0.6-7.6) L 04/06/19 04:30 Baso % (Auto) 0.1 % (0.3-1.7) L 04/06/19 04:30 Nucleat RBC Rel Count 0.0 % (0.0-0.2) 04/06/19 04:30 Absolute Neuts (auto) 12.51 10^3/uL (1.70-6.50) H 04/06/19 04:30 Absolute Lymphs (auto) 1.38 10^3/uL (1.00-3.00) 04/06/19 04:30 Absolute Monos (auto) 1.98 10^3/uL (0.30-0.80) H 04/06/19 04:30 Absolute Eos (auto) 0.05 10^3/uL (0.03-0.40) 04/06/19 04:30 Absolute Basos (auto) 0.02 10^3/uL (0.02-0.10) 04/06/19 04:30 Absolute Nucleated RBC 0.00 10^3/uL (0-0.01) 04/06/19 04:30 Immature Gran % 0.4 % (0.0-1.1) 04/06/19 04:30 Immature Gran # 0.06 10^3/uL (0.00-0.10) 04/06/19 04:30 RBC/WBC/PLT Morphology TNP 04/06/19 04:30 Platelet Estimate TNP 04/06/19 04:30 PT 16.1 SEC (12.0-15.0) H 04/07/19 04:45 INR 1.35 (0.83-1.16) H 04/07/19 04:45 POC Blood Source ARTERIAL 04/04/19 14:09 Patient Temperature 35.0 DEGREES 04/04/19 14:09 POC ABG pH 7.32 (7.35-7.45) L 04/04/19 14:09 POC ABG pCO2 38 mmHg (34-38) 04/04/19 14:09 POC ABG pO2 82 mmHg (65-75) H 04/04/19 14:09 POC ABG HCO3 20 mEq/L (22-26) L 04/04/19 14:09 POC ABG Total CO2 21 mEq/L (23-27) L 04/04/19 14:09 POC ABG O2 Sat 96 % (92-95) H 04/04/19 14:09 POC ABG Base Excess -6.0 mEq/L (-2.5-2.5) L 04/04/19 14:09 POC FiO2 50.0000 % (0-100) 04/04/19 14:09 POC Sodium 140 mEq/L (135-145) 04/04/19 23:52 Sodium 135 mEq/L (135-145) 04/06/19 04:30 POC Potassium 5.0 mEq/L (3.3-5.0) 04/05/19 13:40 Potassium 4.4 mEq/L (3.5-5.2) 04/06/19 04:30 POC Chloride 107 mEq/L (97-110) 04/04/19 23:52 Chloride 104 mEq/L (97-110) 04/06/19 04:30 Carbon Dioxide 25 mEq/l (22-31) 04/06/19 04:30 POC Total CO2 19 mEq/L (22-31) L 04/04/19 23:52 Anion Gap 6 mEq/L (6-14) 04/06/19 04:30 POC BUN 22 mg/dL (7-23) 04/04/19 23:52 BUN 38 mg/dL (7-23) H 04/06/19 04:30 Creatinine 1.1 mg/dL (0.7-1.3) 04/06/19 04:30 POC Creatinine 0.9 mg/dL (0.7-1.3) 04/04/19 23:52 Estimated GFR > 60 04/06/19 04:30 Glucose 109 mg/dL (70-100) H 04/06/19 04:30 POC Glucose 103 mg/dL (70-100) H 04/05/19 07:57 POC Lactic Acid Arter 1.1 mmol/L (0.5-1.6) 04/04/19 14:09 Calcium 8.1 mg/dL (8.5-10.4) L 04/06/19 04:30 Patient ABO/Rh AB POSITIVE 03/30/19 09:00 Antibody Screen NEGATIVE 03/30/19 09:00 Telemetry: see HPI A/P Assessment: POD3 from multivalve surgery and CM4. Sinus arrest. Intrinsic rhythm returning, suspect junctional escape with inconsistent atrial rhythm. Plan: Discussed tentative plans for dual chamber pacemaker tomorrow AM. Will reassess his rhythm prior to committing to this tomorrow (this would be POD4). NPO p MN tonight Continue coumadin, no heparinoids/DOACs LUE restrictions postop discussed in detail Wound care discussed in detail
--- NOTE | 2019-04-07 14:00 | ASMTCMCOM ---
CM Note CM Note Notes: Pt will get permanent pacemaker placement, PT/OT have cleared pt for home w/. CM available for any changes. DC Plan: Independent Date Signed: 04/07/2019 01:59 PM Electronically Signed By:Melanie Alcaraz RN
--- NOTE | 2019-04-07 14:13 | ECHO ---
[email or web address] [address] [address] Main: [phone] Echocardiography Examination Transthoracic Name: GARCIA VERA MR#: [id number] Study Date: 04/07/2019 Study Time: 10:47 AM Date of : 1945 Age: 73 year(s) Height: 172.7 cm (68 in.) Weight: 65.77 kg (145 lb.) BSA: 1.78 m2 Gender: Male Examination: Echo Contrast: Image Quality: Rhythm: Pacemaker rhythm Heart Rate: 50 bpm BP: 103 mmHg/49 mmHg Indication: Post MVR. TVR, External Pacing needs Procedure Staff Referring Physician: Senior Data Quality Analyst: Vin Contreras RDCS Reading Physician: Mark Walton MD Requesting Provider: Ordering Physician: Yohan Avery Indication: Post MVR. TVR, External Pacing needs Measurements Chambers AV/MV Label Value Normal Value Label Value Normal Value LVOT Vmax 0.91 m/s (0.7m/s - 1.1m/s) AV PGmax 9 mmHg LVOTd 1.9 cm (1.9cm - 2.1cm) AV PGmean 4 mmHg LVOT VTI 17.1 cm (18cm - 22cm) AV Vmax 1.47 m/s LVDd, 2D 4.4 cm (4.2cm - 5.9cm) SELENE (Vmax) 1.8 cm2 LVDs, 2D 3.1 cm (2.1cm - 4cm) SELENE (VTI) 1.8 cm2 IVSd, 2D 0.8 cm (0.6cm - 1.1cm) MV E Vmax 1.67 m/s LVPWd, 2D 0.9 cm (0.6cm - 1cm) MV DT 310 ms LVEF, 2D 58 % (54% - 74%) MV VTI 48.4 cm LVOT PGmean 2 mmHg MVA D (continuity eq.) 1 cm2 LVOT Vmean 0.61 m/s MV PGmax 15 mmHg LA Volume, BP 70 ml (18ml - 58ml) MV PGmean 4 mmHg LADs, 2D 3.9 cm (3cm - 4cm) TV/PV LAESV index, BP 39.3 ml/m2 Label Value Normal Value Additional Vessels TV A Vmax 0.42 m/s Label Value Normal Value TV E Vmax 0.78 m/s AoRoot, MM 2.9 cm (2.2cm - 3.7cm) TV E/A ratio 1.8 TV PGmax 8 mmHg TV PGmean 3 mmHg TV Vmax 1.38 m/s (0.3m/s - 0.7m/s) Patient: GARCIA VERA Study Date: 04/07/2019 Page 1 of 3 10:47 AM TV Vmax, Caliper 1.38 m/s (0.3m/s - 0.7m/s) TV Vmean 0.74 m/s TV VTI 29.4 cm Conclusions Left Ventricle: EF range is estimated at 60 % - 65 %. There is paradoxic septal motion suggestive of bundle branch block, paced cardiac rhythm, or prior cardiac surgery. Mitral Valve: A bioprosthesis is present in the mitral valve. The mitral valve prosthesis exhibits normal function. Tricuspid Valve: Tricuspid valve prosthesis function is normal. Pericardium: No pericardial effusion. Findings Left Ventricle: Left ventricle is normal in size. Normal global systolic left ventricular function. The EF is visually estimated to be 65 %. EF range is estimated at 60 % - 65 %. There is paradoxic septal motion suggestive of bundle branch block, paced cardiac rhythm, or prior cardiac surgery. Unable to assess Diastolic Dysfunction due to MVR or MV ring. No LV hypertrophy. Right Ventricle: Normal size right ventricle. Right ventricular systolic function is normal. Left Atrium: The left atrium is moderately dilated. Right Atrium: The right atrium is mildly to moderately dilated. Mitral Valve: A bioprosthesis is present in the mitral valve. The mitral valve prosthesis exhibits normal function. No MV prosthesis regurgitation. No prosthesis stenosis. Aortic Valve: Aortic leaflets are normal in appearance and function. No significant aortic valve regurgitation. There is no aortic stenosis. Tricuspid Valve: There is a 27mm ring in the tricuspid position.. No tricuspid regurgitation. Tricuspid valve prosthesis function is normal. No prosthesis regurgitation. No prosthesis stenosis. There is no significant perivalvular tricuspid regurgitation. Pulmonic Valve: Pulmonic leaflets are normal in appearance and function. Aorta: The aorta is normal. The aortic root size in M-mode measures 2.9 cm. Aorta Measurements AoRoot, MM is 2.9 cm. Pericardium: No pericardial effusion. Exam Details Procedure Ordered: Echo Patient: GARCIA VERA Study Date: 04/07/2019 Page 2 of 3 10:47 AM (No Signature Object) Patient: GARCIA VERA Study Date: 04/07/2019 Page 3 of 3 10:47 AM [id number]
[2019-04-07] MEDS ORDERED: WARFARIN SODIUM 2.5 MG TAB PO ONE (16:00)
[2019-04-08 05:53] LABS: INR 1.53 (0.83-1.16); PROTIME(PATIENT) 17.7 SEC (12.0-15.0)
[2019-04-08] MEDS: HYDROCODONE/APAP 5/325 TAB PO PRN ×2 (06:33→18:07)
--- NOTE | 2019-04-08 07:39 | SOAPPROG ---
SOAP Progress Note Assessment/Plan: Assessment: POD#4 MVR#27 Magna bioprosthesis, TVA#34 MC3 ring, Bedoya-Maze IV LPAF/chronically anticoagulated on Eliquis s/p Maze - Sinus node dysfx -> pacer dependent -> Junctional escape. EP consult placed and d/w Dr. Moran. Cont avoidance of antinodals. Anticoagulation switched to Coumadin as per MVR protocol. Severe MR/Moderate TR - s/p MVReplace & TVA - Antithrombotic prophylaxis with Coumadin x 2 mo, target INR 2-3. Routine TTE w normal function. Valvular cardiomyopathy w preserved LV systolic fx - Extubated without incident. No pressor support. Acute expected blood loss anemia with thrombocytopenia - Stable. No transfusions required. VTE prophylaxis - SCDs, Coumadin Plan: PPM today w Dr. Walton TCPW cut after PPM Coumadin 2.[address] removal today Dispo - Home with outpatient rehab Tuesday/Tuesday Subjective: Doing well. Objective: Vital Signs Temp Pulse Resp BP Pulse Ox 36.6 C 50 L 20 96/61 L 95 04/08/19 07:20 04/08/19 07:20 04/08/19 07:20 04/08/19 07:20 04/08/19 07:20 Laboratory Results 04/07/19 09:00 04/08/19 05:30 04/07/19 04/08/19 04/09/19 05:59 05:59 05:59 Intake Total 1650 860 Output Total 1285 1555 Balance 365 -695 PT 17.7 SEC (12.0-15.0) H 04/08/19 05:30 INR 1.53 (0.83-1.16) H 04/08/19 05:30 - Physical Exam General Appearance: alert, no apparent distress Respiratory: RA, (Blakes x 2 to bulb suction, thin serosang drainage.) Cardiac/Chest: regular rate, rhythm (paced), other (Sternotomy CDI) Abdomen: non-tender, soft Skin: warm/dry Extremities: other (no visible edema) ICD10 Worksheet Patient Problems: Problems Problem Status Onset S/P Maze operation for atrial fibrillation Acute ~04/04/19 S/P mitral valve replacement with bioprosthetic valve Acute ~04/04/19 S/P tricuspid valve repair Acute ~04/04/19 HTN (hypertension) Chronic Valvular cardiomyopathy Chronic Chronic anticoagulation Chronic Longstanding persistent atrial fibrillation Chronic Mitral regurgitation Chronic Tricuspid regurgitation Chronic
--- NOTE | 2019-04-08 08:14 | PDHPUP ---
History & Physical Update H&P update statement: This history and physical update is based on an assessment of the patient which was completed after admission or registration (within 24 hours), but prior to the surgery/procedure. H&P update: H&P reviewed & patient examined, changes noted (ongoing pacing need due to sinus arrest sp open heart surgery -> DC PM implant today)
--- NOTE | 2019-04-08 08:16 | PDANEPAE ---
ANE History of Present Illness sinus node dysfunction sp open heart surgery with CM4 ANE Past Medical History - Cardiovascular History Hx Hypertension: Yes Hx Arrhythmias: Yes Hx Chest Pain: No Hx Coronary Artery / Peripheral Vascular Disease: No Hx CHF / Valvular Disease: No Hx Palpitations: No Cardiovascular History Comment: A-FIB - Pulmonary History Hx COPD: No Hx Asthma/Reactive Airway Disease: No Hx Recent Upper Respiratory Infection: No Hx Oxygen in Use at Home: No Hx Sleep Apnea: No Sleep Apnea Screening Result - Last Documented: Positive - Neurologic History Hx Cerebrovascular Accident: No Hx Seizures: No Hx Dementia: No - Endocrine History Hx Diabetes: No - Renal History Hx Renal Disorders: No - Liver History Hx Hepatic Disorders: Yes Hepatic History Comment: HEP C 1985 TREATED 04/2015 - Neurological & Psychiatric Hx Hx Neurological and Psychiatric Disorders: Yes Neurological / Psychiatric History Comment: INSOMNIA. ANXIETY. MORE RECENTLY IRRITABLE - Cancer History Hx Cancer: Yes Cancer History Comment: MELANOMA. PROSTATE - Congenital Disorder History Hx Congenital Disorders: No - GI History Hx Gastrointestinal Disorders: No - Other Health History Other Health History: UPPER PARTIAL - Chronic Pain History Chronic Pain: No - Surgical History Prior Surgeries: TIFFANIE 11/2018. AVLEINA 2014. PROSTATECTOMY. REMVL MELANOMA ANE Review of Systems Review of Systems: - Exercise capacity METS (RN): 6 METS - Pacemaker Pacemaker Set Rate: 58 ANE Patient History - Allergies Allergies/Adverse Reactions: No Known Allergies Allergy (Verified 04/04/19 07:45) - Home Medications Home Medications: Herbals/Supplements -Info Only 1 each PO AD 02/05/14 [Last Taken 1 Month Ago ~] Multivitamins [Tab-A-Zeynep] 1 each PO DAILY 02/05/14 [Last Taken 1 Month Ago ~] [place]-3 Fatty Acids/Fish Oil [Fish Oil 1,000 mg Capsule] 1 each PO DAILY [Last Taken 1 Month Ago ~03/05/19] Zolpidem Tartrate 5 - 10 mg PO HS PRN 02/05/14 [Last Taken 04/03/19 22:00] Apixaban [Eliquis] 5 mg PO BID 12/07/18 [Last Taken 03/25/19 07:00] Albuterol [Proventil Inhaler HFA (*)] 2 puffs IH DAILY PRN 03/26/19 [Last Taken 07/08/18] Ascorbic Acid [Vitamin C 250 mg (*)] 250 mg PO DAILY 03/26/19 [Last Taken 1 Month Ago ~03/05/19] Lisinopril [Zestril 10 mg (*)] 5 mg PO BID 03/26/19 [Last Taken 04/03/19 22:00] - NPO status NPO Since - Liquids (Date): 04/03/19 NPO Since - Liquids (Time): 22:00 NPO Since - Solids (Date): 04/03/19 NPO Since - Solids (Time): 18:00 - Smoking Hx Smoking Status: Former smoker ANE Labs/Vital Signs - Labs Result Diagrams: 04/07/19 09:00 04/08/19 05:30 - Vital Signs Blood Pressure: 96/61 Heart Rate: 50 Respiratory Rate: 20 O2 Sat (%): 95 Height: 172.72 cm Weight: 65.7 kg ANE Physical Exam - Airway Mallampati Score: Class 2 Mouth exam: normal dental/mouth exam - Pulmonary Pulmonary: no respiratory distress - Cardiovascular Cardiovascular: regular rate and rhythym (paced) - ASA Status ASA Status: III ANE Anesthesia Plan Anesthesia Plan: MAC (versed/fentanyl moderate sedation)
[2019-04-08] MEDS ORDERED: MIDAZOLAM 2 MG/2 ML VIAL ONE (08:58)
[2019-04-08] MEDS ORDERED: fentaNYL 100 MCG/2 ML INJ ONE (08:58)
[2019-04-08] MEDS ORDERED: IOPAMIDOL (ISOVUE-300) 50 ML VIAL ONE (08:58)
[2019-04-08] MEDS ORDERED: LIDOCAINE 1% 5 ML SDV ONE ×2 (08:59→09:03)
[2019-04-08] MEDS ORDERED: LIDO/EPI 1% **for epidural** 30 ML SDV ONE (08:59)
[2019-04-08] MEDS ORDERED: BUPIVACAINE 0.5% 30 ML SDV ONE (08:59)
[2019-04-08] MEDS ORDERED: NS 1,000 ML IV ONE (09:45)
[2019-04-08] MEDS ORDERED: BACITRACIN IRRIGATION/NS 50,000 UNITS/1,000 ML BTL IRR ONE (09:45)
[2019-04-08] MEDS ORDERED: ceFAZolin 2 GM/DEXTROSE 100 ML IV ONE (09:45)
--- NOTE | 2019-04-08 11:45 | EPPROC ---
Electrophysiology Procedure Note: Date: 04/08/19 Sole Leveler: Tomi Walton MD Procedures: Implant DC pacemaker - [id number] Monitored IV sedation - 66min - [id number] + [id number] Indications: 73yo M POD4 from open heart surgery with mitral valve replacement, tricuspid valve repair, Bedoya-Maze IV. Sinus arrest postop, ongoing pacing needs via temporary epicardial wires. Techniques: Following informed consent, the patient was brought to the EP lab in a fasting nonsedated state, in Vpaced rhythm. IV antibiotics were administered. IV sedation was administered under the direct supervision of the physician starting at 0949 with continuous monitoring of O2/HR/BP until 1055 ( 66minutes) - a total of 1mg IV midazolam and 100mcg IV fentanyl were given. The left anterior chest was prepped and draped in usual sterile fashion. 1% lidocaine was infiltrated over the left DP groove. Under US guidance, vascular access was obtained x2 in the extrathoracic portion of the left subclavian vein. A skin incision was made at the left DP groove and cutdown was performed to the DP fascia; a subcu pocket was fashioned. Two 6Fr sheaths were inserted over the access wires. Pacing leads were delivered to RV distal septal and RA appendage positions, and actively fixated. The leads were anchored to the underlying fascia using two nonresorbable sutures around each lead's retention sleeve. THe leads were connected to a pulse generator. The system was placed in pocket and a nonresorbable suture was applied to the can. The pocket was irrigated with antibiotic solution and Dstat hemostatic matrix was injected in the pocket. The incision was closed in layers using resorbable sutures and dressed with steristrips. Fluoro survey showed no pneumothorax, and stable system position. The patient tolerated the procedure well. Pulse generator: Biotronik [id number], SN [id number], implant 04/08/19 DDDCLS 60-130 RA lead: Biotronik [id number], SN [id number], implant 04/08/19 6.7mV, 566ohms, 0.8V@0.4ms RV lead: Biotronik [id number], SN [id number], implant 04/08/19 5.3mV, 612ohms, 0.9V@0.4ms EBL: minimal Complications: none Assessment: Successful implant of DC PM for treatment of sick sinus syndrome Plan: 4hr bedrest CXR and interrogation in AM LUE restrictions for 1 month Keep incision dry for 2 days Pacemaker clinic f/u 1-2 weeks Patient Problems: Problems Problem Status Onset S/P Maze operation for atrial fibrillation Acute ~04/04/19 S/P mitral valve replacement with bioprosthetic valve Acute ~04/04/19 S/P tricuspid valve repair Acute ~04/04/19 HTN (hypertension) Chronic Valvular cardiomyopathy Chronic Chronic anticoagulation Chronic Longstanding persistent atrial fibrillation Chronic Mitral regurgitation Chronic Tricuspid regurgitation Chronic
--- NOTE | 2019-04-08 15:38 | ASMTCMCOM ---
CM Note CM Note Notes: Patient discussed in clinical rounds, pacemaker to be placed today and chest tubes likely to be removed today or tomorrow. Plan continues to be discharge home independent with . CM to follow. D/C Plan: Independent. Date Signed: 04/08/2019 03:38 PM Electronically Signed By:Yari Lucero
[2019-04-08] MEDS: WARFARIN SODIUM 2.5 MG TAB PO SCH (18:04)
[2019-04-08] MEDS: PANTOPRAZOLE SODIUM 40 MG TAB PO SCH (18:04)
[2019-04-08] MEDS: ASPIRIN 81 MG CHEWABLE TAB PO SCH (18:04)
[2019-04-08] MEDS: SENNOSIDES/DOCUSATE SODIUM TAB PO SCH (18:04)
[2019-04-09] MEDS: HYDROCODONE/APAP 5/325 TAB PO PRN ×2 (06:35→15:10)
[2019-04-09 06:59] LABS: INR 1.75 (0.83-1.16); PROTIME(PATIENT) 19.6 SEC (12.0-15.0)
[2019-04-09] MEDS ORDERED: FUROSEMIDE 20 MG/2 ML VIAL IVP ONE (07:55)
[2019-04-09] MEDS ORDERED: POTASSIUM CL 10 MEQ TAB PO ONE (07:55)
--- NOTE | 2019-04-09 08:47 | SOAPPROG ---
SOAP Progress Note Assessment/Plan: Assessment: POD#5 MVR#27 Magna bioprosthesis, TVA#34 MC3 ring, Bedoya-Maze IV POD#[address] Walton LPAF/chronically anticoagulated on Eliquis s/p Maze - PPM per Dr. Moran for sinus arrest/SSS. Cont avoidance of antinodals. Anticoagulation switched to Coumadin as per MVR protocol. TCPW cut. Severe MR/Moderate TR - s/p MVReplace & TVA - Antithrombotic prophylaxis with Coumadin x 2 mo, target INR 2-3. Routine TTE w normal valve function. Home ACEI not appropriate at this time. Valvular cardiomyopathy w preserved LV systolic fx - Extubated without incident. No pressor support. Acute expected blood loss anemia with thrombocytopenia - Stable. No transfusions required. VTE prophylaxis - SCDs, Coumadin Plan: Coumadin 2.[address]#3 Out, CT#2 remains Continue diuresis Dispo - Home with outpatient rehab tomorrow (if last chest tube can be pulled) Subjective: Left arm is sore from PPM Objective: Vital Signs Temp Pulse Resp BP Pulse Ox 36.8 C 65 18 102/70 92 04/09/19 07:44 04/09/19 07:44 04/09/19 07:44 04/09/19 07:44 04/09/19 07:44 Laboratory Results 04/07/19 09:00 04/09/19 06:15 04/08/19 04/09/19 04/10/19 05:59 05:59 05:59 Intake Total 860 1300 Output Total 1555 1610 Balance -695 -310 PT 19.6 SEC (12.0-15.0) H 04/09/19 06:15 INR 1.75 (0.83-1.16) H 04/09/19 06:15 - Physical Exam General Appearance: alert, no apparent distress Respiratory: RA, (Blakes x 2 to bulb suction, thin serosang drainage.) Cardiac/Chest: regular rate, rhythm (paced), other (Sternotomy CDI) Abdomen: non-tender, soft Skin: warm/dry Extremities: other (no visible edema) ICD10 Worksheet Patient Problems: Problems Problem Status Onset S/P Maze operation for atrial fibrillation Acute ~04/04/19 S/P mitral valve replacement with bioprosthetic valve Acute ~04/04/19 S/P tricuspid valve repair Acute ~04/04/19 HTN (hypertension) Chronic Valvular cardiomyopathy Chronic Chronic anticoagulation Chronic Longstanding persistent atrial fibrillation Chronic Mitral regurgitation Chronic Tricuspid regurgitation Chronic
[2019-04-09] MEDS: PANTOPRAZOLE SODIUM 40 MG TAB PO SCH (09:08)
[2019-04-09] MEDS: POTASSIUM CL 10 MEQ TAB PO SCH (09:08)
[2019-04-09] MEDS: FUROSEMIDE 20 MG TAB PO SCH (09:08)
[2019-04-09] MEDS: SENNOSIDES/DOCUSATE SODIUM TAB PO SCH ×3 (09:08→22:56)
[2019-04-09] MEDS: ASPIRIN 81 MG CHEWABLE TAB PO SCH (09:08)
--- NOTE | 2019-04-09 10:25 | PDCARPN ---
Cardiology Progress Note Chief Complaint: s/p dual-chamber PPM Assessment/Plan: Assessment: 1. POD #5 s/p MVR, TVA, and Bedoya-Maze IV 2. Post-op sinus arrest s/p Biotronik dual-chamber PPM yesterday 04/[address] Walton. Device interrogation this AM demonstrates normal thresholds and impedance. CXR pending Plan: 1. Post-pacemaker activity restrictions and wound care were reviewed with patient in detail. I emphasized the importance of limited ROM and avoidance of heavy lifting for 4 weeks, in addition to avoidance of heavy push-ups/walking planks and repetitive lifting with the left arm throughout his lifetime. Mr. Muniz verbalized understanding 2. Follow-up with [facility] in 7-10 days 3. Follow-up with Dr. Walton in 4 weeks 4. CXR pending 04/09/19 10:47 Subjective: No issues overnight Reviewed/Discussed With: multidisciplinary team Time Spent with Patient: greater than 25 minutes Time Spent with Patient: Greater than 25 minutes spent on this patients care, greater than 50% of time spent counseling, educating, and coordinating care regarding the above mentioned plan. Objective: Vital Signs (8 Hrs) Temp Pulse Resp BP Pulse Ox 04/09/19 07:44 36.8 C 65 18 102/70 92 04/09/19 04:00 36.7 C 68 10 L 141/71 H 97 Intake/Output (24 Hrs) 04/08/19 04/09/19 04/10/19 05:59 05:59 05:59 Intake Total 860 1300 Output Total 1555 1610 90 Balance -695 -310 -90 Intake: Oral (ml) 860 1300 Output: Urine (ml) 925 975 Toilet 300 Urinal 925 675 Chest Tube Output (ml) 630 635 90 Location 2 350 385 Location 3 280 250 90 Other: Weight 65.7 kg 65.4 kg Intake Quantity Yes Sufficient Number of Voids Urinal 3 Number of Stools Toilet 1 Result Diagrams: 04/07/19 09:00 04/09/19 06:15 - Physical Exam Constitutional: WDWN, healthy appearing, no apparent distress Ears, Nose, Mouth, Throat: moist mucous membranes, no oral ulcers, no thrush Neurologic: AAOx3, CN II-XII grossly intact Psychiatric: interactive, following commands, not anxious ICD10 Worksheet Patient Problems: Problems Problem Status Onset S/P Maze operation for atrial fibrillation Acute ~04/04/19 S/P mitral valve replacement with bioprosthetic valve Acute ~04/04/19 S/P tricuspid valve repair Acute ~04/04/19 HTN (hypertension) Chronic Valvular cardiomyopathy Chronic Chronic anticoagulation Chronic Longstanding persistent atrial fibrillation Chronic Mitral regurgitation Chronic Tricuspid regurgitation Chronic
[2019-04-09] MEDS: WARFARIN SODIUM 2.5 MG TAB PO SCH (15:10)
[2019-04-10 04:26] LABS: INR 2.08 (0.83-1.16); PROTIME(PATIENT) 22.4 SEC (12.0-15.0)
[2019-04-10 07:27] VITALS: BP 140/73
--- NOTE | 2019-04-10 07:39 | PDDCSUM ---
Discharge Summary Discharge Summary: DATE OF ADMISSION: 04/04/19 DATE OF DISCHARGE: 04/10/19 DISPOSITION: Home ACTIVITY: Instructed on sternal precautions, activity restrictions, and problems to call [employer]. ADMISSION DIAGNOSES: Longstanding persistent atrial fibrillation Valvular cardiomyopathy with severe AGUSTINA Moderate to severe mitral regurgitation Moderate tricuspid regurgitation Possible high grade ostial RCA stenosis DISCHARGE DIAGNOSES: As above, plus Sinus arrest/sick sinus syndrome s/p Biotronik PPM Acute blood loss anemia PROCEDURES PERFORMED: 04/04/19 (Ping) MVReplacement #27 Magna bioprosthesis, TVAnnuloplasty #34 Lee ring, Bedoya-Maze IV 04/08/19 (Aznaurov) Biotronik PPM HISTORY OF PRESENT ILLNESS: 73 yo male with persistent AF assoc with moderate to severe MR, moderate TR, severe biatrial enlargement and class II-III functional symptoms admitted for elective Bedoya-Maze IV procedure with valvular repair/replacement. HOSPITAL COURSE BY PROBLEM LIST: LPAF/chronically anticoagulated on Eliquis s/p Maze - PPM per Dr. Moran for sinus arrest/SSS. Antinodals avoided. Anticoagulation switched to Coumadin as per CM4 protocol with target INR 2-3 for 3-6 months. Severe MR/Moderate TR - s/p MVReplace & TVA - Antithrombotic prophylaxis with Coumadin. Routine TTE w normal valve function. Home ACEI not appropriate at this time. Valvular cardiomyopathy w preserved LV systolic fx - Extubated without incident. No pressor support. Acute expected blood loss anemia with thrombocytopenia - No transfusions required. Moderate chest tube output - Last drain was removed on POD#6 on day of discharge. Thin serosang in nature. PA/LAT CXR clear. Discussed the s/s of reaccumulation of effusion and instructed to check daily SpO2 readings. He was on RA in the hospital. PERTINENT DISCHARGE CLINICAL INFORMATION: Sternotomy CDI, stable PPM CDI, no erythema Paced HR 66 BP 140/73 SpO2 92% RA preop wt 64.4 kg, discharge wt 64.7 kg WBC 13.98 Hgb 10.6 Hct 31.2 Plt 82 Na 135 K 3.9 Cr 0.7 INR 2.08 CONSULTANTS: [facility] (Antonia); EP (Aznaurov) MEDICATIONS ON ADMISSION: Reviewed in [employer] ALLERGIES/SENSITIVITIES: NKDA DISCHARGE MEDICATIONS: CONTINUE these medications: Resume all home medications except those stated below. STOP these medications: Eliquis, Lisinopril. NEW medications: Coumadin 2.5 mg PO daily Tylenol PRN [place] #30 tabs PRN Lasix 20 mg PO daily/Klor-Con 10 mEq PO daily ASA 81 mg PO daily FOLLOW UP APPOINTMENTS: CV surgery, Dr. Feng, as directed Cardiology, Dr. Booth, as directed Electrophysiology, Dr. Walton, as directed PCP, as directed Coumadin Clinic, as directed, INR per CM4 protocol FOLLOW UP TESTING: CXR prior to surgical appointment
--- NOTE | 2019-04-10 07:39 | SOAPPROG ---
SOAP Progress Note Assessment/Plan: Assessment: POD#6 MVR#27 Magna bioprosthesis, TVA#34 MC3 ring, Bedoya-Maze IV POD#[address] Walton LPAF/chronically anticoagulated on Eliquis s/p Maze - PPM per Dr. Moran for sinus arrest/SSS. Cont avoidance of antinodals. Anticoagulation switched to Coumadin as per CM4 protocol (originally said MVR protocol but confirmed with Ping). TCPW cut. Severe MR/Moderate TR - s/p MVReplace & TVA - Antithrombotic prophylaxis with Coumadin CM4 protocol, target INR 2-3. Routine TTE w normal valve function. Home ACEI not appropriate at this time. Valvular cardiomyopathy w preserved LV systolic fx - Extubated without incident. No pressor support. Acute expected blood loss anemia with thrombocytopenia - Stable. No transfusions required. VTE prophylaxis - SCDs, Coumadin Plan: CT out Dispo - Home with outpatient rehab Subjective: Ready for discharge Objective: Vital Signs Temp Pulse Resp BP Pulse Ox 37.1 C 66 20 140/73 H 92 04/10/19 07:25 04/10/19 07:25 04/10/19 07:25 04/10/19 07:25 04/10/19 07:25 Laboratory Results 04/07/19 09:00 04/10/19 03:55 04/09/19 04/10/19 04/11/19 05:59 05:59 05:59 Intake Total 1300 1050 Output Total 1610 1900 Balance -310 -850 PT 22.4 SEC (12.0-15.0) H 04/10/19 03:55 INR 2.08 (0.83-1.16) H 04/10/19 03:55 ICD10 Worksheet Patient Problems: Problems Problem Status Onset S/P Maze operation for atrial fibrillation Acute ~04/04/19 S/P mitral valve replacement with bioprosthetic valve Acute ~04/04/19 S/P tricuspid valve repair Acute ~04/04/19 HTN (hypertension) Chronic Valvular cardiomyopathy Chronic Chronic anticoagulation Chronic Longstanding persistent atrial fibrillation Chronic Mitral regurgitation Chronic Tricuspid regurgitation Chronic
[2019-04-10] MEDS: POTASSIUM CL 10 MEQ TAB PO SCH (08:43)
[2019-04-10] MEDS: FUROSEMIDE 20 MG TAB PO SCH (08:43)
[2019-04-10] MEDS: ASPIRIN 81 MG CHEWABLE TAB PO SCH (08:43)
[2019-04-10] MEDS: PANTOPRAZOLE SODIUM 40 MG TAB PO SCH (08:44)
[2019-04-10] MEDS: HYDROCODONE/APAP 5/325 TAB PO PRN (08:44)
[2019-04-10] MEDS: SENNOSIDES/DOCUSATE SODIUM TAB PO SCH (08:45)
--- NOTE | 2019-04-10 11:56 | CPEKG ---
Test Reason : Pre-pacemaker/AICD implant Blood Pressure : / mmHG Vent. Rate : 060 BPM Atrial Rate : 060 BPM P-R Int : 468 ms QRS Dur : 089 ms QT Int : 443 ms P-R-T Axes : 134 074 -63 degrees QTc Int : 443 ms Atrial-paced rhythm Abnormal T, consider ischemia, diffuse leads Confirmed by Jt Sin ([id number]) on 04/10/2019 11:56:28 AM Referred By: Andre Feng Confirmed By:Jt Sin
== END 2019-04-10 12:30 | disposition home or self-care (01) | DRG 220 ==
LOC: F2W 07:15 → F2N 07:22 → F2W 04-06 10:49
PROVIDERS: ADMIT Thoracic Surgery (Cardiothoracic Vascular Surgery); ATTEND Thoracic Surgery (Cardiothoracic Vascular Surgery)
PROC: 02RJ08Z Replacement of Tricuspid Valve with Zooplastic Tissue, Open Approach (ICD-10-PCS; principal; 2019-04-04 08:45)
PROC: 5A1221Z Performance of Cardiac Output, Continuous (ICD-10-PCS; principal; 2019-04-04 08:45)
PROC: 02RG08Z Replacement of Mitral Valve with Zooplastic Tissue, Open Approach (ICD-10-PCS; principal; 2019-04-04 08:45)
PROC: 02B70ZK Excision of Left Atrial Appendage, Open Approach (ICD-10-PCS; principal; 2019-04-04 08:45)
PROC: 02H63JZ Insertion of Pacemaker Lead into Right Atrium, Percutaneous Approach (ICD-10-PCS; 2019-04-08)
PROC: 0JH606Z Insertion of Pacemaker, Dual Chamber into Chest Subcutaneous Tissue and Fascia, Open Approach (ICD-10-PCS; 2019-04-08)
PROC: 02HK3JZ Insertion of Pacemaker Lead into Right Ventricle, Percutaneous Approach (ICD-10-PCS; 2019-04-08)
DX: I08.1 Rheumatic disorders of both mitral and tricuspid valves (principal); D62 Acute posthemorrhagic anemia; I48.0 Paroxysmal atrial fibrillation; I49.5 Sick sinus syndrome; I10 Essential (primary) hypertension; I25.10 Atherosclerotic heart disease of native coronary artery without angina pectoris; B19.20 Unspecified viral hepatitis C without hepatic coma; Z85.46 Personal history of malignant neoplasm of prostate; Z87.891 Personal history of nicotine dependence
CPT/HCPCS: 82435-PO; 82565-PO; 82947-PO; 83605-ER; 84132-PO; 84295-PO; 84520-PO; 85014-ER; 97116-GP; 97161-GP; 97166-GO; 97530-GO; 97530-GP; 97535-GO; A4649; C1785; C1898; J0153; J0282; J0690; J1100; J1250; J1265; J1644; J1815; J1885; J1940; J2001; J2150; J2250; J2260; J2270; J2370; J2440; J2704; J2720; J2930; J3010; J3475; J3480; P9041; Q9967

== ENCOUNTER → 2019-04-17 | Outpatient (CLI) | payer OTHER | LOC: FLAB 11:29 ==

== ENCOUNTER → 2019-05-01 | Outpatient (CLI) | payer OTHER | LOC: FIMAGING 10:45 ==